=== PATIENT | female | born 1965 | race Caucasian/White ===

== ENCOUNTER 2022-04-29 20:49 | Emergency (ER) | payer MEDICARE ==
[~2022-04-29 20:49] MED LIST: CYMBALTA60 MG PO; ESTRADIOL0.5 MG PO; HCTZ12.5 MG PO; IBUPROFEN800 MG PO; KLOR-CON 1010 MEQ PO; LYRICA75 MG PO; MELOXICAM15 MG PO; NORCO 5-325 TA1 EACH PO; OMEPRAZOLE40 MG PO; TOPIRAMATE ER50 MG PO; TRAZODONE HCL50 MG PO; VALACYCLOVIR1000 MG PO; VITAMIN B122500 MCG PO; VITAMIN D10000 UNIT PO
[2022-04-29] MEDS ORDERED: MEDROL 4MG DOSEP4 MG PO (23:21)
[2022-04-29] MEDS ORDERED: NORCO 5-325 TA1 EACH PO (23:21)
== END 2022-04-29 23:47 | disposition home or self-care (01) ==
LOC: FER 20:49
DX: M54.42 Lumbago with sciatica, left side (principal); M54.2 Cervicalgia; F17.290 Nicotine dependence, other tobacco product, uncomplicated; Z88.5 Allergy status to narcotic agent; Z88.8 Allergy status to other drugs, medicaments and biological substances; W10.9XXA Fall (on) (from) unspecified stairs and steps, initial encounter; Y92.009 Unspecified place in unspecified non-institutional (private) residence as the place of occurrence of the external cause
CPT/HCPCS: 72125; 72128; 72131; J1100; J1170; J2405